=== PATIENT | female | born 2005 | race Caucasian/White ===

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

== ENCOUNTER → 2024-02-19 | Outpatient (REF) | payer OTHER ==
[2024-02-19 18:15] LABS: BASO # 0.1 10^3/uL (0.0-0.2); BASO % 1.3 % (0.0-1.0); EOS # 0.1 10^3/uL (0.0-0.5); EOS % 2.7 % (0.0-3.0); HEMOGLOBIN 14.4 g/dl (12.0-15.5); LYMPH # 1.6 10^3/uL (1.5-5.0); LYMPH % 31.1 % (24.0-44.0); MEAN CORPUSCULAR HEMOGLOBIN 32.4 pg (27.0-33.0); MEAN CORPUSCULAR HGB CONC 35.1 g/dl (32.0-36.5); MEAN CORPUSCULAR VOLUME 92.3 fl (80.0-96.0); MONO # 0.5 10^3/uL (0.0-0.8); MONO % 10.2 % (2.0-8.0); NEUTROPHILS # 2.8 10^3/uL (1.5-8.5); NEUTROPHILS % 54.5 % (36.0-66.0); PLATELET COUNT, AUTOMATED 232 10^3/uL (150-450); RED BLOOD COUNT 4.44 10^6/uL (4.00-5.40); WHITE BLOOD COUNT 5.2 10^3/uL (4.0-10.0)
[2024-02-19 18:21] LABS: ALBUMIN 4.8 G/DL (3.2-5.2); ALKALINE PHOSPHATASE 53 U/L (46-116); ALT/SGPT 18 U/L (7.0-40); AST/SGOT 13 U/L (<34); BLOOD UREA NITROGEN 7 MG/DL (9-23); CALCIUM LEVEL 9.3 MG/DL (8.5-10.1); CARBON DIOXIDE LEVEL 26 MMOL/L (20-31); CHLORIDE LEVEL 105 MMOL/L (98-107); CREATININE FOR GFR 0.78 MG/DL (0.55-1.30); FREE T4 1.19 NG/DL (0.83-1.43); GLUCOSE, FASTING 89 MG/DL (60-100); POTASSIUM SERUM 4.2 MMOL/L (3.5-5.1); SODIUM LEVEL 139 MMOL/L (136-145); THYROID STIMULATING HORMONE 0.683 uIU/ML (0.48-4.17); TOTAL PROTEIN 7.4 G/DL (5.7-8.2)
== END ==
LOC: M LABDRWAD 17:12
PROVIDERS: ATTEND Pediatrics
DX: F50.9 Eating disorder, unspecified (principal)

== ENCOUNTER → 2024-03-02 | Outpatient (CLI) | payer OTHER | LOC: M RAD 13:41 | PROVIDERS: ATTEND Pediatrics | DX: R10.816 Epigastric abdominal tenderness (principal) ==

== ENCOUNTER → 2024-04-09 | Outpatient (REF) | payer OTHER ==
[2024-04-09 20:00] LABS: GC DNA AMPLIFICATION NEGATIVE (NEGATIVE)
== END ==
LOC: M LAB REF 17:16
PROVIDERS: ATTEND Registered Nurse
DX: Z11.3 Encounter for screening for infections with a predominantly sexual mode of transmission (principal)

== ENCOUNTER → 2024-06-21 | Outpatient (REF) | payer OTHER | LOC: M LAB REF 16:26 | PROVIDERS: ATTEND Physician Assistant | DX: J02.9 Acute pharyngitis, unspecified (principal) ==

== ENCOUNTER → 2024-10-24 | Outpatient (CLI) | payer OTHER ==
[2024-10-24 18:17] LABS: BASO # 0.1 10^3/uL (0.0-0.2); BASO % 1.3 % (0.0-1.0); EOS # 0.1 10^3/uL (0.0-0.5); EOS % 2.8 % (0.0-3.0); HEMOGLOBIN 13.6 g/dl (12.0-15.5); LYMPH # 1.6 10^3/uL (1.5-5.0); LYMPH % 33.5 % (24.0-44.0); MEAN CORPUSCULAR HEMOGLOBIN 31.1 pg (27.0-33.0); MEAN CORPUSCULAR VOLUME 91.3 fl (80.0-96.0); MONO # 0.5 10^3/uL (0.0-0.8); MONO % 11.3 % (2.0-8.0); NEUTROPHILS # 2.4 10^3/uL (1.5-8.5); NEUTROPHILS % 50.9 % (36.0-66.0); PLATELET COUNT, AUTOMATED 241 10^3/uL (150-450); RED BLOOD COUNT 4.38 10^6/uL (4.00-5.40); WHITE BLOOD COUNT 4.7 10^3/uL (4.0-10.0)
[2024-10-24 18:19] LABS: FERRITIN 51.3 NG/ML (7.3-270.7); LDH LACTATE DEHYDROGENASE 240 U/L (120-246)
[2024-10-24 18:20] LABS: ALBUMIN 4.6 G/DL (3.2-5.2); ALKALINE PHOSPHATASE 46 U/L (35-104); ALT/SGPT 20 U/L (7.0-40); AST/SGOT 22 U/L (<34); BILIRUBIN,TOTAL 0.8 MG/DL (0.3-1.2); BLOOD UREA NITROGEN 7 MG/DL (9-23); CALCIUM LEVEL 9.7 MG/DL (8.5-10.1); CARBON DIOXIDE LEVEL 26 MMOL/L (20-31); CHLORIDE LEVEL 106 MMOL/L (98-107); CREATININE FOR GFR 0.64 MG/DL (0.55-1.30); GLUCOSE, FASTING 89 MG/DL (60-100); IRON (FE) 124 UG/DL (50-170); PERCENT SATURATION 34.3 % (13.2-45.0); POTASSIUM SERUM 4.1 MMOL/L (3.5-5.1); SODIUM LEVEL 142 MMOL/L (136-145); THYROID STIMULATING HORMONE 0.881 uIU/ML (0.48-4.17); TOTAL IRON BINDING CAPACITY 362 UG/DL (250-425); TOTAL PROTEIN 7.6 G/DL (5.7-8.2)
[2024-10-24 18:23] LABS: FREE T4 1.26 NG/DL (0.83-1.43)
[2024-10-24 18:25] LABS: THYROID PEROXIDASE ANTIBODY < 28.0 U/ML (<60.0)
== END ==
LOC: M WUC 10:57
PROVIDERS: ATTEND Registered Nurse
DX: R53.83 Other fatigue (principal)

== ENCOUNTER 2025-01-11 19:45 | Emergency (ER) | payer OTHER ==
[~2025-01-11] VITALS: Ht 165.1 cm; Wt 60.0 kg
[2025-01-11 20:15] LABS: PROTEIN, URINE MANUAL REFLEX OBSCURED mg/dL (NEGATIVE); SP GRAVITY,URINE MANUAL REFLEX 1.007 (1.002-1.035)
[2025-01-11 20:16] LABS: KETONE, URINE MANUAL REFLEX OBSCURED mg/dL (NEGATIVE); NITRITE, URINE MANUAL RFX OBSCURED (NEGATIVE); UROBILINOGEN, UA MANUAL REFLEX OBSCURED mg/dl (NORMAL)
[2025-01-11 20:21] LABS: HYALINE CAST, URINE RFX NONE SEEN /lpf (0-1); WBC, URINE MAN RFX 30-40 /hpf (0-3)
[2025-01-11 20:22] LABS: MICROSCOPIC EXAM RFX PERFORMED; RBC, URINE MAN REFLEX TNTC /hpf (0-3); SQUAMOUS EPITHELIAL URINE RFX NONE SEEN /hpf (SMALL AMT)
[2025-01-11] MEDS: KETOROLAC 30 MG/ML 1ML VIAL IV ONE (21:46)
[2025-01-11] MEDS: cefTRIAXone SOD 1 GM in DEXTROSE 5% (D5W) ADV/MINI-BAG 50 ML IV ONE (21:47)
[2025-01-11] MEDS: NS (Normal Saline) 0.9% 1,000 ML IV ONE (21:47)
[2025-01-11 21:48] LABS: BASO # 0.1 10^3/uL (0.0-0.2); BASO % 0.3 % (0.0-1.0); HEMATOCRIT 38.1 % (36.0-47.0); HEMOGLOBIN 13.9 g/dl (12.0-15.5); LYMPH # 0.9 10^3/uL (1.5-5.0); LYMPH % 3.8 % (24.0-44.0); MEAN CORPUSCULAR HGB CONC 36.5 g/dl (32.0-36.5); MEAN CORPUSCULAR VOLUME 87.8 fl (80.0-96.0); MONO # 1.4 10^3/uL (0.0-0.8); MONO % 6.4 % (2.0-8.0); NEUTROPHILS % 89.1 % (36.0-66.0); PLATELET COUNT, AUTOMATED 312 10^3/uL (150-450); RED BLOOD COUNT 4.34 10^6/uL (4.00-5.40); WHITE BLOOD COUNT 22.5 10^3/uL (4.0-10.0)
[2025-01-11 22:11] LABS: BLOOD UREA NITROGEN 9 MG/DL (9-23); CALCIUM LEVEL 9.4 MG/DL (8.5-10.1); CARBON DIOXIDE LEVEL 26 MMOL/L (20-31); CHLORIDE LEVEL 108 MMOL/L (98-107); CREATININE FOR GFR 0.67 MG/DL (0.55-1.30); GLOMERULAR FILTRATION RATE > 90.0 (>60); GLUCOSE, FASTING 103 MG/DL (60-100); SODIUM LEVEL 144 MMOL/L (136-145)
[2025-01-11 22:14] LABS: HCG, SERUM QUALITATIVE NEGATIVE (NEGATIVE)
[2025-01-11 22:29] VITALS: BP 127/84; TEMP 99.5; O2SAT 99
[2025-01-11] MEDS ORDERED: CEFD1CAP9 PO (22:52)
== END 2025-01-11 23:59 | disposition home or self-care (01) ==
LOC: M ED 19:45
DX: N10 Acute pyelonephritis (principal)
CPT/HCPCS: 80048; 81000; 81015; 83605; 84703; 85025; 87088; 87186; 96374; 96375; 99283; J0696; J1885

== ENCOUNTER → 2025-01-11 | Outpatient (REF) | payer OTHER ==
[~2025-01-11] MED LIST: CEFD1CAP9 PO
== END ==
LOC: M LAB REF 16:48
PROVIDERS: ATTEND Physician Assistant
DX: N39.0 Urinary tract infection, site not specified (principal)

== ENCOUNTER 2025-01-29 04:29 | Emergency (ER) | payer OTHER ==
[~2025-01-29] VITALS: Ht 165.1 cm; Wt 59.1 kg
[2025-01-29] MEDS ORDERED: HYDR-643 (04:38)
[2025-01-29] MEDS ORDERED: ZOLO100T (04:38)
[2025-01-29] MEDS ORDERED: OMEP40CA5 (04:38)
[2025-01-29] MEDS: ONDANSETRON 4MG 2ML VIAL IV ONE (06:40)
[2025-01-29] MEDS: KETOROLAC 30 MG/ML 1 ML VIAL IV ONE (06:40)
[2025-01-29 06:58] LABS: KETONE, URINE AUTO RFX NEGATIVE (NEGATIVE); LEUKOCYTE ESTERASE UR AUTO RFX NEGATIVE (NEGATIVE); MUCUS, URINE RFX SMALL (NEGATIVE); NITRITE, URINE AUTO RFX NEGATIVE (NEGATIVE); RBC, URINE AUTO RFX 0 /HPF (0-3); SQUAM EPITHELIAL CELL UR AURFX 1 /HPF (0-6); WBC, URINE AUTO RFX 0 /HPF (0-3)
[2025-01-29 07:00] LABS: BASO % 0.5 % (0.0-1.0); EOS % 0.5 % (0.0-3.0); HEMOGLOBIN 13.6 g/dl (12.0-15.5); LYMPH # 0.9 10^3/uL (1.5-5.0); LYMPH % 10.6 % (24.0-44.0); MEAN CORPUSCULAR HEMOGLOBIN 31.1 pg (27.0-33.0); MEAN CORPUSCULAR HGB CONC 35.8 g/dl (32.0-36.5); MONO # 0.7 10^3/uL (0.0-0.8); MONO % 7.9 % (2.0-8.0); NEUTROPHILS # 6.9 10^3/uL (1.5-8.5); NEUTROPHILS % 80.2 % (36.0-66.0); PLATELET COUNT, AUTOMATED 254 10^3/uL (150-450); RED BLOOD COUNT 4.37 10^6/uL (4.00-5.40); WHITE BLOOD COUNT 8.7 10^3/uL (4.0-10.0)
[2025-01-29 07:28] LABS: ALBUMIN 4.7 G/DL (3.2-5.2); BILIRUBIN,DIRECT 0.2 MG/DL (<0.4); BILIRUBIN,TOTAL 0.7 MG/DL (0.3-1.2); TOTAL PROTEIN 7.5 G/DL (5.7-8.2)
[2025-01-29] MEDS: GASTROGRAFIN SOLUTION 30ML PO SCH (08:35)
[2025-01-29] MEDS ORDERED: ISOVUE-370 76% 100 ML VIAL As Ordered ONE (09:42)
[2025-01-29 11:09] VITALS: BP 121/59; TEMP 98.6; O2SAT 97
== END 2025-01-29 11:14 | disposition home or self-care (01) ==
LOC: M ED 04:29
DX: N83.291 Other ovarian cyst, right side (principal); K59.00 Constipation, unspecified
CPT/HCPCS: 74177; 80047; 80076; 81001; 83690; 84702; 85025; 96374; 96375; 99284; J1885; J2405; Q9963; Q9967

== ENCOUNTER → 2025-03-14 | Outpatient (REF) ==
[~2025-03-14] MED LIST changes: +HYDR-643; +OMEP40CA5; +ZOLO100T
== END ==
LOC: M EMP 08:35
PROVIDERS: ATTEND Family Medicine
DX: Z01.89 Encounter for other specified special examinations (principal)

== ENCOUNTER → 2025-04-07 | Outpatient (REF) | payer OTHER, BC | LOC: M LAB REF 11:36 | PROVIDERS: ATTEND Student in an Organized Health Care Education/Training Program | DX: R30.0 Dysuria (principal) ==

== ENCOUNTER → 2025-08-21 | Outpatient (CLI) | payer BC | LOC: M WHC 12:58 | PROVIDERS: ATTEND Registered Nurse | DX: R10.23 Pelvic and perineal pain bilateral (principal); R93.89 Abnormal findings on diagnostic imaging of other specified body structures; R93.49 Abnormal radiologic findings on diagnostic imaging of other urinary organs ==